=== PATIENT | male | born 1945 | race Caucasian/White ===

== ENCOUNTER → 2017-06-20 | Outpatient (CLI) | payer MEDICARE, OTHER ==
--- NOTE | 2017-06-23 07:37 | US ---
EXAM DESCRIPTION: Extremity,Lower Renzo Arteries CLINICAL HISTORY: 72 years, Male, PERIPHERIAL NEUROPATHY COMPARISON: None. FINDINGS: Multiphasic waveforms are noted in the right lower extremity arteries. Color Doppler images show no significant stenotic lesion. Peak systolic velocities in the right lower extremity as follows: Right common femoral artery 106 centimeters/second Proximal right superficial femoral artery 70 centimeters/second Mid right superficial femoral artery 80 centimeters/second Distal right superficial femoral artery 70 centimeters/second Right popliteal artery 99 centimeters/second Right posterior tibial artery 47 centimeters/second Right dorsalis pedis artery 68 centimeters/second Right peroneal artery 47 centimeters/second Multiphasic waveforms are noted in the left lower extremity arteries. Color Doppler images show no significant stenotic lesion. Peak systolic velocities in the left lower extremity as follows: Left common femoral artery 67 centimeters/second Proximal left superficial femoral artery 64 centimeters/second Mid left superficial femoral artery 65 centimeters/second Distal left superficial femoral artery 52 centimeters/second Left popliteal artery 49 centimeters/second Left posterior tibial artery 37 centimeters/second Left dorsalis pedis artery 46 centimeters/second Left peroneal artery 52 centimeters/second IMPRESSION: Negative exam. Multiphasic waveforms in the bilateral lower extremity arteries without evidence of hemodynamically significant stenosis. Electronically signed by: Morris Rosado MD 06/23/2017 7:36 AM [facility] [employer]
== END ==
LOC: US 08:59
PROVIDERS: ATTEND Family Medicine
DX: G90.09 Other idiopathic peripheral autonomic neuropathy (principal); R94.39 Abnormal result of other cardiovascular function study

== ENCOUNTER → 2017-07-11 | Outpatient (CLI) | payer MEDICARE, OTHER | LOC: GMAM 12:56 | PROVIDERS: ATTEND Family Medicine | DX: E87.8 Other disorders of electrolyte and fluid balance, not elsewhere classified (principal) ==

== ENCOUNTER → 2017-07-15 | Outpatient (CLI) | payer MEDICARE, OTHER ==
--- NOTE | 2017-07-15 11:18 | MRI ---
EXAM DESCRIPTION: Brain w/wo Contrast: Magnetic Resonance Imaging. CLINICAL HISTORY: MEMORY LOSS COMPARISON: None. TECHNIQUE: Multiplanar, high-field MRI, multiple conventional sequences, without and with gadolinium IV contrast. No adverse reactions. Multiple axial diffusion sequences. FINDINGS: Few small foci of bright FLAIR and T2-weighted signal scattered throughout the periventricular white matter and garay-white matter junctions of the cerebral hemispheres. . No hemorrhage, no cerebral edema, no mass effect. Normal signal in the bilateral basal ganglia. No hemorrhage, no cerebral edema, no mass-effect. Normal contrast enhancement. Normal signal in the brainstem and cerebellar hemispheres. No hemorrhage, no cerebral edema, no mass-effect. Normal contrast enhancement. Concordance of the diffusion and non-diffusion sequences with no evidence of acute or subacute infarction. Cortical sulci, ventricles, and other CSF spaces, and the subdural spaces are normally configured for patients age. No effacement or displacement. No midline shift. No extra-axial hemorrhage. Normal contrast enhancement. Normal flow signal void in the major vessels of the huslia Fink, and the venous sinuses. IACs are symmetric bilaterally. Normal signal in the bilateral mastoid air cells. No mass effect in the bilateral Cerebellopontine angles. Normal contrast enhancement. Pituitary gland occupies most of the sella. Normal contrast enhancement. Base of the cerebellar tonsils is above the foramen magnum. Minimal mucoperiosteal thickening in the paranasal sinuses. No air-fluid levels. The bony calvarium is intact. IMPRESSION: 1. Scattered foci of bright objects in the periventricular and subcortical white matter most likely related to aging and cerebral microvascular disease. Unlikely secondary to migraine headaches, vasculitis, or inflammatory process, or demyelinating process. No mass effect, no cerebral edema, or hemorrhage associated with these lesions or elsewhere in the brain. No diffusion restriction. 2. Normal noncontrast MRI diffusion study with no evidence of acute or subacute infarction. Electronically signed by: Daniel Pennington MD 07/15/2017 11:17 AM CDT
== END ==
LOC: MRI 08:00
PROVIDERS: ATTEND Family Medicine
DX: R41.82 Altered mental status, unspecified (principal); I73.9 Peripheral vascular disease, unspecified; I11.9 Hypertensive heart disease without heart failure; R00.1 Bradycardia, unspecified; I65.29 Occlusion and stenosis of unspecified carotid artery

== ENCOUNTER → 2018-01-19 | Outpatient (CLI) | payer MEDICARE, OTHER | LOC: GMAM 14:42 | PROVIDERS: ATTEND Family Medicine | DX: E03.9 Hypothyroidism, unspecified (principal) ==

== ENCOUNTER → 2018-08-18 | Outpatient (CLI) | payer MEDICARE, OTHER ==
--- NOTE | 2018-08-18 16:59 | US ---
EXAM DESCRIPTION: Extremity,Lower Renzo Arteries: Ultrasound. CLINICAL HISTORY: UNSPECIFIED PVD COMPARISON: None. TECHNIQUE: Doppler evaluation of the bilateral lower extremity arterial flow waveforms and velocities. FINDINGS: Arterial waveforms in the right lower extremity are triphasic or biphasic from the right common femoral artery through the right posterior tibial artery. Blunted monophasic in the right DPA.. Arterial waveforms in the left lower extremity are triphasic or biphasic from the right common femoral artery through the right dorsalis pedis artery. Comments: Skipped beats noted in both lower extremities. IMPRESSION: Findings suggest a significant atherosclerotic occlusive narrowing in the proximal or distal right dorsalis pedis artery. This can be followed up with CTA if clinically indicated. Patient also has an arrhythmia. Electronically signed by: Daniel Pennington MD 08/18/2018 4:56 PM CDT
== END ==
LOC: US 10:20
PROVIDERS: ATTEND Family Medicine
DX: I70.201 Unspecified atherosclerosis of native arteries of extremities, right leg (principal)

== ENCOUNTER → 2018-08-26 | Outpatient (CLI) | payer MEDICARE, OTHER ==
--- NOTE | 2018-08-26 16:26 | CT ---
Procedure: CT ABDOMEN RUNOFF ANGIO WITH AND WITHOUT BILATERAL Exam Date: 08/26/2018 Ordering Provider: Alan Soriano Clinical Indication: UNSPECIFIED PVD Comparison: 08/18/2018 lower extremity arterial ultrasound Technique: Using a helical scanner, sequential axial imaging of the abdominal aorta, common and external iliac arteries bilaterally, and lower extremity arteries bilaterally to each foot was obtained following the administration of intravenous contrast. At an independent workstation [id number] reconstructions of the abdominal aorta, iliac systems bilaterally, and lower extremity arteries bilaterally was obtained. This exam was performed according to our departmental dose optimization program which includes use of automated exposure control, adjustment of the mA and/or kV according to patient size and/or use of iterative reconstruction technique. Findings: Review of conventional CT imaging was obtained. Small hiatal hernia. Liver, gallbladder, spleen, pancreas, adrenal glands and kidneys are unremarkable. Urinary bladder is unremarkable. Colonic diverticulosis without evidence of diverticulitis. Normal appendix. No bowel obstruction. There is a duodenal diverticulum. No lymphadenopathy. Bilateral knee arthroplasties. Postsurgical changes in the distal right fibula. Advanced degenerative changes in left hip. Mild atherosclerotic plaque in the aorta. No abdominal aortic aneurysm or dissection. The celiac and SMA origins are intact. There is a single right renal artery without significant stenosis. There 2 left renal arteries without significant stenosis. The right common iliac artery is patent without significant stenosis The right external iliac artery is patent without significant stenosis. The left common iliac artery is patent without significant stenosis. The left external iliac artery is patent without significant stenosis. Right lower extremity: The common femoral artery is patent without significant stenosis. The profunda femoris artery is patent without significant stenosis. Approximately 75% stenosis in the distal superficial femoral artery. Approximately 90% stenosis in the popliteal artery. Multifocal high-grade stenosis in the peroneal and anterior and posterior tibial arteries. Left lower extremity: Approximately 80% stenosis in the common femoral artery. The profunda femoris artery is patent without significant stenosis. The superficial femoral artery is patent without significant stenosis. Approximately 50% stenosis in the popliteal artery. Multifocal high-grade stenosis in the peroneal and anterior and posterior tibial arteries. Impression: 1. Approximately 75% stenosis in the distal right superficial femoral artery. 2. Approximately 90% stenosis in the right popliteal artery. 3. Approximately 80% stenosis in the left common femoral artery. 4. Multifocal high-grade stenosis in the peroneal, anterior and posterior tibial arteries bilaterally. 5. Additional findings as above. Electronically signed by: Nicola Melendrez MD 08/26/2018 4:23 PM CDT
--- NOTE | 2018-08-27 08:36 | MRI ---
EXAM DESCRIPTION: Lumbar Spine w/o Contrast CLINICAL HISTORY: 73 years Male, RADICULOPATHY LUMBAR REGION COMPARISON: None available. TECHNIQUE: Multiplanar multiecho imaging of the lumbar spine was performed without intravenous contrast administration. FINDINGS: Straightening of the normal lordotic curvature of the lumbar spine is noted. The vertebral body heights are well-maintained with no acute compression deformity. Multilevel intervertebral disc space narrowing is noted. The conus medullaris terminates at L1 vertebral body. The visualized spinal cord demonstrates no signal abnormality. 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 L1-L2: Disc desiccation and loss of disc height. Diffuse disc bulge, ligamentum flavum hypertrophy and facet arthropathy with resultant moderate central canal stenosis. The thecal sac measures 7 mm in anteroposterior dimension. Moderate right and severe left neural foraminal narrowing is noted. Severe bilateral lateral recess narrowing is also identified. L2-L3: Disc desiccation and loss of disc height. Mild diffuse disc bulge, ligamentum flavum hypertrophy and facet arthropathy with resultant moderate central canal stenosis and moderate bilateral neural foraminal narrowing. The thecal sac measures 9 mm in anteroposterior dimension. L3-L4: Disc desiccation and diffuse disc bulge is identified. There is mild to moderate central canal stenosis secondary to disc bulge, ligament of flavum hypertrophy and facet arthropathy. Moderate bilateral neural foraminal narrowing is also identified. L4-L5: Diffuse disc bulge, ligamentum flavum hypertrophy and facet arthropathy with resultant mild central canal stenosis. Moderate to severe bilateral neural foraminal narrowing is identified. Large asymmetric disc osteophyte is noted to the right side with impingement of the exiting right L4 nerve root. L5-S1: Disc desiccation and loss of disc height. Mild diffuse disc bulge, ligamentum flavum hypertrophy and facet arthropathy with no significant central canal stenosis. There is moderate bilateral neural foraminal narrowing. The visualized prevertebral and paravertebral soft tissues appear unremarkable. IMPRESSION: Multilevel degenerative disc disease, ligamentum flavum hypertrophy and facet arthropathy throughout the lumbar spine with variable degrees of canal stenosis and neural foraminal narrowing as detailed above. Electronically signed by: Dee Dee Braxton MD 08/27/2018 8:34 AM CDT
--- NOTE | 2018-08-27 08:41 | MRI ---
EXAM DESCRIPTION: Cervical Spine CLINICAL HISTORY: 73 years Male, RADICULOPATHY CERVICAL REGION COMPARISON: None available. TECHNIQUE: Multiplanar, multiecho imaging of the cervical spine was performed without gadolinium administration. FINDINGS: Straightening of the normal lordotic curvature of the cervical spine is identified. The vertebral body heights are well-maintained with no acute compression deformity. Multilevel intervertebral disc space narrowing is noted. The visualized spinal cord demonstrates no signal abnormality. Large anterior hypertrophic osteophytes are identified with mass effect on the airway. The visualized prevertebral and paravertebral soft tissues appear grossly unremarkable. C2-C3: Disc desiccation and loss of disc height. No significant central canal stenosis or neural foraminal narrowing. C3-C4: Disc desiccation and loss of disc height. Mild posterior disc bulge and uncovertebral joint arthropathy with resultant mild central canal stenosis and [id number] bilateral neural foraminal narrowing. There is indentation of the anterior aspect of the spinal cord. However no abnormal signal is identified within the spinal cord. C4-C5: Disc desiccation and loss of disc height. Mild diffuse disc bulge with no central canal stenosis. There is mild right and moderate to severe left neural foraminal narrowing secondary to uncovertebral joint arthropathy. C5-C6: Disc desiccation and loss of disc height. Mild disc bulge and uncovertebral joint arthropathy with resultant mild to moderate central canal stenosis and moderate to severe bilateral neural foraminal narrowing. C6-C7: Disc desiccation and severe loss of disc height. Mild disc bulge with no central canal stenosis. There is moderate to severe bilateral neural foraminal narrowing secondary to uncovertebral joint arthropathy. C7-T1: Disc desiccation is noted. However no significant disc bulge. No significant neural foraminal narrowing is also identified. IMPRESSION: Multilevel degenerative disc disease and uncovertebral joint arthropathy throughout the cervical spine with variable degrees of neural foraminal narrowing as detailed above. Electronically signed by: Dee Dee Braxton MD 08/27/2018 8:39 AM CDT
== END ==
LOC: CT 08:30
PROVIDERS: ATTEND Family Medicine
DX: M54.16 Radiculopathy, lumbar region (principal); M54.12 Radiculopathy, cervical region; I73.9 Peripheral vascular disease, unspecified; M50.31 Other cervical disc degeneration, high cervical region; M50.320 Other cervical disc degeneration, mid-cervical region, unspecified level; M50.323 Other cervical disc degeneration at C6-C7 level; M51.36 Other intervertebral disc degeneration, lumbar region; M48.062 Spinal stenosis, lumbar region with neurogenic claudication

== ENCOUNTER → 2019-03-12 | Outpatient (CLI) | payer MEDICARE, OTHER | LOC: GMAM 11:06 | PROVIDERS: ATTEND Family Medicine | DX: Z12.5 Encounter for screening for malignant neoplasm of prostate (principal); E03.9 Hypothyroidism, unspecified; R73.9 Hyperglycemia, unspecified; E78.2 Mixed hyperlipidemia; I10 Essential (primary) hypertension | CPT/HCPCS: 84439; 84443; G0103 ==

== ENCOUNTER → 2019-04-13 | Outpatient (CLI) | payer MEDICARE, OTHER ==
--- NOTE | 2019-04-13 12:30 | MRI ---
Study: MRI of the Left Hip. Indication: PAIN IN LEFT HIP Technique: Multiplanar, multi sequence MRI of the left hip was obtained without intravenous contrast. Comparison: CTA August 26, 2018. Findings: Pronounced lower lumbar disc disease. Moderate pubic symphysis osteoarthritis. At least moderate to severe right hip osteoarthritis. High-grade tendinosis bilateral hamstring tendon origins, right greater than left. No high-grade tendon tear. Advanced-severe left hip osteoarthritis. Extensive grade 4 chondral loss throughout the left hip joint with pronounced cortical remodeling. A chronic appearing collapsed fracture of the superior margin femoral head suspected with displacement of the fracture fragment inferomedially which is fused to the inferomedial margin of the femoral head. There is significant remodeling and subchondral sclerosis of the superior acetabulum as well. No acute osteonecrosis. Impression: Chronic appearing collapse and fracturing of the superior margin left femoral head as above with secondary advanced-severe left hip osteoarthritis. Additional findings as above. Electronically signed by: Carlos Garcia MD 04/13/2019 12:28 PM [facility]
--- NOTE | 2019-04-13 15:28 | MRI ---
EXAM DESCRIPTION: Thoracic Spine w/o Contrast: Magnetic Resonance Imaging. CLINICAL HISTORY: RADICULOPATHY THORACIC COMPARISON: MR scans of the cervical and lumbar spine August 2018. TECHNIQUE: Multiplanar, multiple standard sequences, non contrast MRI, thoracic spine. FINDINGS: T3-T4 disc space decreased with minimal anterior and right side endplate reactive changes. Posterior disc bulge in the midline and right of midline also narrowing the right foramen. Minimal canal narrowing. Left foramen patent. Minimal disc space loss and disc desiccation at T7-T8. No significant disc bulge. Canal and foramina are patent. Disc desiccation T9-T10 with anterior bulging and endplate ridging. This is also seen at multiple other levels. Tiny posterior midline bulge. Mild bilateral hypertrophic facet arthrosis and narrowing of the foramina no foraminal or canal stenosis. Other discs with normal signal. Disc spaces are preserved. Canal and foramina are patent. No scoliosis. Facet joints are unremarkable. Conus terminates below the T12-L1 disc space which is the lower limit of the study.. Cord with normal signal, no compression. Paravertebral soft tissues are unremarkable. Hyperintense T1 and T2 signal partially circumscribed in the anterior aspect of the superior T10 endplate representing a meningioma. Otherwise normal marrow signal in the remaining vertebral bodies and the posterior elements. Vertebral bodies are not compressed at any level. IMPRESSION: 1. Disc desiccation at some levels with disc bulging. Minimal endplate changes at some levels. Multiple levels with anterior endplate ridging mainly to the right of midline. No canal or foraminal stenosis. Normal cord signal. No vertebral body fractures. Electronically signed by: Daniel Pennington MD 04/13/2019 3:26 PM [facility]
== END ==
LOC: MRI 09:15
PROVIDERS: ATTEND Psychiatry & Neurology Neurology
DX: M16.12 Unilateral primary osteoarthritis, left hip (principal); S72.052A Unspecified fracture of head of left femur, initial encounter for closed fracture; M51.14 Intervertebral disc disorders with radiculopathy, thoracic region

== ENCOUNTER → 2020-01-25 | Outpatient (CLI) | payer MEDICARE, OTHER | LOC: GMAM 16:53 | PROVIDERS: ATTEND Family Medicine | DX: Z12.5 Encounter for screening for malignant neoplasm of prostate (principal); E03.9 Hypothyroidism, unspecified; I10 Essential (primary) hypertension; R78.2 Finding of cocaine in blood; R73.9 Hyperglycemia, unspecified | CPT/HCPCS: 84439; 84443; G0103 ==

== ENCOUNTER → 2020-02-04 | Outpatient (CLI) | payer MEDICARE, OTHER | LOC: ECHO 11:02 | PROVIDERS: ATTEND Internal Medicine Cardiovascular Disease | DX: I25.10 Atherosclerotic heart disease of native coronary artery without angina pectoris (principal); I51.7 Cardiomegaly ==

== ENCOUNTER 2020-05-02 13:11 | Outpatient (CLI) | payer MEDICARE, OTHER | END 2020-05-02 16:49 | disposition home or self-care (01) | LOC: INFRM 13:11 | PROVIDERS: ATTEND Family Medicine | DX: U07.1 COVID-19 (principal); R71.8 Other abnormality of red blood cells; I11.9 Hypertensive heart disease without heart failure; R09.02 Hypoxemia; Z23 Encounter for immunization | CPT/HCPCS: 80053; 82550; 82553; 82728; 83615; 83735; 84484; 85025; 85379; 85384; 86140; M0239 ==